=== PATIENT | female | born 1965 | race Caucasian/White ===

== ENCOUNTER 2016-07-31 10:15 | Emergency (ER) | payer BC ==
[~2016-07-31] VITALS: Ht 165.1 cm; Wt 75.6 kg
[~2016-07-31 10:15] MED LIST: BUPR-79 PO; CLON0.5T3 PO; LAMO150T32 PO; SERT25TA PO
[2016-07-31 10:32] VITALS: TEMP 36.9; Ht 165.1 cm; Wt 75.6 kg
[2016-07-31] MEDS ORDERED: LAMO200T38 PO (11:14)
--- NOTE | 2016-07-31 11:37 | EMERGENCY ROOM VISIT NOTE ---
ED Visit Note First contact with patient: 10:56 CHIEF COMPLAINT: Eye pain HISTORY OF PRESENT ILLNESS: This 51-year-old female patient presents to the emergency department ambulatory complaining of pain in the right eye since yesterday. There has been a constant moderate pain and irritation, redness and tearing in the eye. There is a mild blurring of vision at times and light bothers the eye. The vision has not been decreased over all. The patient does wear contacts. The patient rates the pain as irritating and 1/10. The patient has been seen at urgent care and referred to the emergency department for further evaluation and management.. The patient has not had previous injuries to this eye. She did have shingles in the left eye in [address] Rodríguez' s office. She states she did not have a rash at that time. REVIEW OF SYSTEMS: A 6 system review of systems was completed with positives and pertinent negatives listed in the HPI. ALLERGIES: Sulfa MEDICATIONS: See nursing notes PMH: Patient denies SOCIAL HISTORY: The patient lives locally. She is employed PHYSICAL EXAM: Vital Signs: Reviewed Nurse's notes, vital signs stable. Visual acuity 20/20 in the right and 20/20 in the left with glasses. GENERAL: This is a 51-year-old female, in no acute distress, but who is uncomfortable from the eye problem. Well-developed well-nourished. EYES: The pupils are equal round and reactive to light and accommodation. EOMs are full and without tenderness. There is discharge of clear tears from the right eye which is injected. There is no foreign body visible under the eyelid even after lid eversion. Funduscopic exam reveals no hemorrhages, papilledema, or other abnormalities. No foreign body was seen embedded in the cornea under slit lamp exam. The cornea was clear and no hyphema was seen. Fluorescein uptake was observed with ultraviolet light and reveals a circular area of uptake at approximately 6:00 just below the pupil. It does not appear to be dendritic in nature. Intraocular pressures were normal by auto tonometer EMERGENCY DEPARTMENT COURSE: I examined the patient. A slit lamp exam was performed as above. I discussed the case with Dr. Rodríguez who recommends treating for corneal ulcer with Cipro drops and a follow-up in the office tomorrow. The patient declined pain medication. The patient was discharged home in good condition. DISCHARGE INSTRUCTIONS AND TREATMENT: Use Ciloxin two drops in right eye every two hours while awake for two days; then two drops every four hours while awake for three days. Use Ibuprofen 600 mg every 6 hrs as needed for moderate pain. Contact Dr. rodríguez's office first thing in the morning for an appointment tomorrow; they open at 8 AM Return with any worsening pain, decreased vision or generalized worsening symptoms Current/Historical Medications Scheduled Bupropion (Wellbutrin Sr), 150 MG PO DAILY Ciprofloxacin Hcl (Ophth) (Ciloxan Oph), 1 DROP OP Q2H Lamotrigine (Lamictal), 200 MG PO HS Sertraline (Zoloft), 25 MG PO HS Allergies Coded Allergies: Sulfa Drugs (Verified Allergy, Severe, HIVES, 07/31/13) Vital Signs Date Time Temp Pulse Resp B/P Pulse Ox O2 Delivery O2 Flow Rate FiO2 07/31/16 12:05 78 20 122/78 97 07/31/16 10:32 36.9 82 18 119/81 96 Room Air Departure Information Impression Primary Impression: Cornea ulcer Dispostion Home / Self-Care Condition GOOD Prescriptions Ciprofloxacin Hcl (Ophth) (CILOXAN OPH) 0.3 % Ambar 1 DROP OP Q2H, #1 BTL while awake for 5 days Prov: Carmel Patel PA-C 07/31/16 Referrals Talon Mina M.D. (PCP) Drew Rodríguez M.D. Patient Instructions My [facility], Ulcer Corneal Additional Instructions Use Ciloxin two drops in right eye every two hours while awake for two days; then two drops every four hours while awake for three days. Use Ibuprofen 600 mg every 6 hrs as needed for moderate pain. Contact Dr. rodríguez's office first thing in the morning for an appointment tomorrow; they open at 8 AM Return with any worsening pain, decreased vision or generalized worsening symptoms No contact lens use until cleared by ophthalmology Problem Qualifiers Primary Impression: Cornea ulcer Laterality: right Qualified Codes: H16.001 - Unspecified corneal ulcer, right eye
[2016-07-31] MEDS ORDERED: CIPR0.3S OP (11:48)
[2016-07-31 12:05] VITALS: BP 122/78; PULSE 78; O2SAT 97
== END 2016-07-31 12:13 | disposition home or self-care (01) ==
LOC: C.EDB 10:18 → C.EDD 12:13
DX: H16.001 Unspecified corneal ulcer, right eye (principal); Z79.899 Other long term (current) drug therapy

== ENCOUNTER → 2016-09-28 | Outpatient (CLI) | payer BC ==
[~2016-09-28] MED LIST changes: -CLON0.5T3 PO; -LAMO150T32 PO; +LAMO200T38 PO
== END | disposition home or self-care (01) ==
LOC: C.PATHSPEC 15:25
PROVIDERS: ATTEND Obstetrics & Gynecology
DX: N95.0 Postmenopausal bleeding (principal)

== ENCOUNTER → 2017-02-09 | Outpatient (CLI) | payer BC ==
[2017-02-09 12:02] LABS: MANUAL MICROSCOPIC REQUIRED? NO; REVIEW REQ? NO; URINE APPEARANCE CLEAR (CLEAR); URINE BILIRUBIN NEG (NEG); URINE COLOR YELLOW; URINE NITRITE NEG (NEG); URINE SPECIFIC GRAVITY 1.026 (1.000-1.030); UROBILINOGEN NEG (NEG)
== END | disposition home or self-care (01) ==
LOC: C.LABSPEC 11:26
PROVIDERS: ATTEND Obstetrics & Gynecology
DX: N39.0 Urinary tract infection, site not specified (principal)

== ENCOUNTER → 2017-04-20 | Outpatient (CLI) | payer BC ==
--- NOTE | 2017-04-21 13:36 | MAMMOGRAPHY REPORT ---
BILATERAL DIGITAL SCREENING MAMMOGRAM TOMOSYNTHESIS WITH CAD: 04/20/2017 CLINICAL HISTORY: Routine screening. Patient has no complaints. TECHNIQUE: Breast tomosynthesis in addition to standard 2D mammography was performed. Current study was also evaluated with a Computer Aided Detection (CAD) system. COMPARISON: Comparison is made to exams dated: 04/19/2016 mammogram, 04/07/2015 mammogram, 04/04/2014 mammogram, 03/22/2013 mammogram, 03/16/2012 mammogram, and 03/10/2011 mammogram - [facility]. BREAST COMPOSITION: The tissue of both breasts is heterogeneously dense, which may obscure small mas ses. FINDINGS: No suspicious masses, calcifications, or areas of architectural distortion are noted in ei ther breast. There has been no significant interval change compared to prior exams. IMPRESSION: ACR BI-RADS CATEGORY 1: NEGATIVE There is no mammographic evidence of malignancy. A 1 year screening mammogram is recommended. The pa tient will receive written notification of the results. Approximately 10% of breast cancers are not detected with mammography. A negative mammographic report should not delay biopsy if a clinically suggestive mass is present. Veronica Medina M.D. ah/:04/20/2017 16:12:30 Warp Trucker: Mariana SIDDIQUI(Jatinder)(M), [facility] letter sent: Normal 1/2 BI-RADS Code: ACR BI-RADS Category 1: Negative
== END | disposition home or self-care (01) ==
LOC: C.MAMM 15:13
PROVIDERS: ATTEND Internal Medicine
DX: Z12.31 Encounter for screening mammogram for malignant neoplasm of breast (principal)

== ENCOUNTER → 2017-04-21 | Outpatient (CLI) | payer BC ==
[~2017-04-21] MED LIST changes: +LAMO200T35 PO; -LAMO200T38 PO
[2017-04-21 09:36] LABS: BASO % 0.8 %; BASO ABS # 0.04 K/uL (0-0.2); COMPLETE YES; EOS % 1.8 %; HEMATOCRIT 38.4 % (37-47); IG% 0.2 %; LYMPH % 35.4 %; LYMPH ABS # 1.75 K/uL (1.2-3.4); MEAN CELL VOLUME 88.7 fL (80-100); MEAN CORPUSCULAR HEMOGLOBIN 29.8 pg (25-34); MEAN CORPUSCULAR HGB CONC 33.6 g/dl (32-36); MEAN PLATELET VOLUME 10.4 fL (7.4-10.4); MONO % 7.3 %; NEUT % 54.5 %; PLATELET COUNT 248 K/uL (130-400); RED BLOOD COUNT 4.33 M/uL (4.2-5.4); WHITE BLOOD COUNT 4.95 K/uL (4.8-10.8)
[2017-04-21 09:54] LABS: ESTIMATED AVERAGE GLUCOSE 105 mg/dl; HA1C FLAG Normal (Normal)
[2017-04-21 10:04] LABS: BLOOD UREA NITROGEN 14 mg/dl (7-18); BUN/CREATININE RATIO 14.7 (10-20); CALCIUM 8.5 mg/dl (8.5-10.1); CARBON DIOXIDE 28 mmol/L (21-32); CHLORIDE 106 mmol/L (98-107); CREATININE 0.92 mg/dl (0.60-1.20); GLUCOSE 92 mg/dl (70-99); POTASSIUM 3.7 mmol/L (3.5-5.1); SODIUM 139 mmol/L (136-145)
[2017-04-21 10:15] LABS: CHOLESTEROL 216 mg/dl (0-200); CHOLESTEROL/HDL RATIO 3.9; HDL CHOLESTEROL 55 mg/dl; LDL CHOLESTEROL CALCULATED 133 mg/dl; TRIGLYCERIDES 141 mg/dl (0-150); VERY LOW DENSITY LIPOPROT CALC 28 mg/dl
[2017-04-21 17:27] LABS: URINE APPEARANCE CLEAR (CLEAR); URINE BILIRUBIN NEG (NEG); URINE COLOR YELLOW; URINE EPITHELIAL CELL AUTO >30 /lpf (0-5); URINE NITRITE NEG (NEG); URINE SPECIFIC GRAVITY 1.026 (1.000-1.030); UROBILINOGEN NEG (NEG)
[2017-04-21 17:29] LABS: MANUAL MICROSCOPIC REQUIRED? NO; REVIEW REQ? NO
== END | disposition home or self-care (01) ==
LOC: C.LAB1850 08:29
PROVIDERS: ATTEND Internal Medicine
DX: E78.00 Pure hypercholesterolemia, unspecified (principal)

== ENCOUNTER 2017-05-19 08:45 | Emergency (ER) | payer OTHER ==
[~2017-05-19] VITALS: Ht 162.6 cm; Wt 80.1 kg
[2017-05-19 08:52] VITALS: TEMP 36.6; Ht 162.6 cm; Wt 80.1 kg
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
[2017-05-19 10:44] VITALS: BP 134/88; PULSE 78; O2SAT 96
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
== END 2017-05-19 10:44 | disposition home or self-care (01) ==
LOC: C.EDB 08:46 → C.EDA 10:44
DX: S16.1XXA Strain of muscle, fascia and tendon at neck level, initial encounter (principal); V49.40XA Driver injured in collision with unspecified motor vehicles in traffic accident, initial encounter; Y92.488 Other paved roadways as the place of occurrence of the external cause; M25.519 Pain in unspecified shoulder; K58.9 Irritable bowel syndrome, unspecified; F41.9 Anxiety disorder, unspecified; F32.9 Major depressive disorder, single episode, unspecified